=== PATIENT | male | born 1960 | race Caucasian/White ===

== ENCOUNTER 2019-12-07 16:54 | Observation (INO) | payer MEDICAID, SELFPAY ==
--- NOTE | 2019-12-07 16:50 | ECG_ITS ---
APPROVED REPORT Exam: Resting ECG HR:79 bpm ECG Measurements Heart Rate 79 AXES RI 168 P 29 QRSd 82 QRS -16 QT 370 T 38 QTc 424 <Conclusion> Normal sinus rhythm Poor r wave progression,LAD Abnormal ECG Electronically signed by : Jesse Thompson, 12/08/2019 09:01:02
[2019-12-07 16:54] VITALS: BP 183/109; PULSE 84; RESP 17; TEMP 36.8; O2SAT 96; BMI 29.2
--- NOTE | 2019-12-07 17:01 | XR_ITS ---
PROCEDURE: XR CHEST 2V CLINICAL HISTORY: chest pain Chest pain and shortness of air COMPARISON: CR CXR CHEST(2 VIEWS-NOT PORTABLE) from 09/16/2016 FINDINGS: The cardiomediastinal silhouette and pulmonary vascularity are within normal limits. The lungs are clear without infiltrates, suspicious nodules, or pleural effusions. No acute bony abnormalities. IMPRESSION: No acute findings. Dictated by: Thien Lorenzo MD 12/07/2019 18:19 Thien Lorenzo MD in [place] 12/07/2019 18:19
--- NOTE | 2019-12-07 17:03 | HMH.EDGENADL ---
ED Disposition Clinical Impression: Alcohol use Chest pain Qualifiers: Chest pain type: unspecified Qualified Code(s): R07.9 - Chest pain, unspecified Hypertension Qualifiers: Hypertension type: essential hypertension Qualified Code(s): I10 - Essential (primary) hypertension Disposition: Admitted as Observation Condition on Discharge: Fair Time of Disposition: 20:00 - Critical Care Critical Care Time: No Attestation: On , the high probability of a clinically significant, sudden or life threatening deterioration of the following system(s) required my full and direct attention, intervention and personal management. The time I documented below is in addition to time spent performing reported procedures but includes the following listed in this critical care notation. Medical Decision Making - Medical Records Medical records reviewed: Yes: I reviewed the patient's medical records. - Luis A Inquiry Pt receiving controlled substance: No Vital Signs: 12/07/19 16:54 12/07/19 18:24 12/07/19 19:41 Temperature 98.2 F Temperature Source Oral Pulse Rate [Right] 84 72 77 Respiratory Rate 17 20 19 Blood Pressure [Right Arm] 183/109 H 154/87 H 147/93 H Blood Pressure Mean [Right Arm] 133 109 111 Blood Pressure Source [Right Arm] Automatic Cuff Automatic Cuff Blood Pressure Position [Right Arm] Sitting Sitting 02 Sat by Pulse Oximetry 96 95 94 L Oxygen Delivery Method Room Air Room Air - Lab Data Lab Results 12/07/19 17:00: WBC 8.8, RBC 5.09, Hgb 17.2, Hct 50.2, MCV 98.6 H, MCH 33.8 H, MCHC 34.3, RDW 14.1, Plt Count 210, MPV 8.2, Neut % (Auto) 65.6, Lymph % (Auto) 26.5, [place] % (Auto) 5.2, Eos % (Auto) 2.3, Baso % (Auto) 0.4, Neut # (Auto) 5.8, Lymph # (Auto) 2.3, [place] # (Auto) 0.5, Eos # (Auto) 0.2, Baso # (Auto) 0.0 12/07/19 17:00: Sodium 138, Potassium 3.6, Chloride 102, Carbon Dioxide 27, Anion Gap 12.6, BUN 7 L, Creatinine 0.70, Estimated Creat Clear 175, Estimated GFR 115, Est GFR ( Amer) 140, Glucose 106 H, Calcium 9.4, Troponin I < 0.01 12/07/19 17:00: D-Dimer 0.37 12/07/19 17:00: SARS-CoV-2 IgG Ab (Rapid) Negative, SARS-CoV-2 IgM Ab (Rapid) Negative 12/07/19 17:00: Plasma/Serum Alcohol 39 H 12/07/19 17:00: APTT 22.7 L 12/07/19 17:00: Phosphorus 3.1, Magnesium 2.0 Result diagrams: 12/07/19 17:00 12/07/19 17:00 Orders (Tests/Meds): ED MEDICATIONS Generic Name Dose Route Start Last Admin Trade Name Freq PRN Reason Stop Dose Admin Folic Acid 1 mg 12/08/19 09:00 Folic Acid 1mg Tablet PO 01/07/20 08:59 DAILY TARA Haloperidol 5 mg 12/07/19 19:12 Haldol 5mg Tablet PO 01/06/20 19:11 Q1HP PRN Agitation Multivitamins 1 each 12/08/19 17:00 Multi-Vitamin Plain PO 01/07/20 16:59 1700 TARA Oxazepam 15 mg 12/07/19 19:12 Serax 15mg Capsule PO 01/08/20 19:14 Q6H PRN Alcohol Withdrawal Oxazepam 30 mg 12/07/19 19:12 Serax 15mg Capsule PO 12/09/19 13:16 Q6H PRN Alcohol Withdrawal Thiamine HCl 100 mg 12/08/19 09:00 Vitamin B-1 100mg Tablet PO 12/10/19 09:01 DAILY [facility] ORDERS Category Date Time Status Troponin I Q3H Lab 12/07/19 23:15 Ordered - ECG Data Tracing #1 Sinus rhythm with ventricular rate of 79 bpm. QRS 82, QTc 424. No st segment elevation - INDER Score for Non-Stemi Age of Patient: 50-59 years old Heart Rate: 70-89 bpm Systolic Blood Pressure: 160-199 mmHg Serum Creatinine: 0.40-0.79 mg/dl CHF Killip Class: I-No CHF Other Risk Factors: None Non-Stemi Risk Score: 64 Medical Decision Narrative: In summary this is a 59-year-old male presenting to the emergency department chest pain. Patient is clinically stable on arrival, though he is hypertensive. Concern for ACS. Will obtain CBC, CMP, chest x-ray, EKG, troponin profile, d-dimer. EKG shows sinus rhythm, possible age-indeterminate septal infarct. No STEMI.. Initial laboratory results are generally unremarkable. No elevation
[2019-12-07 17:10] LABS: Basophils % 0.4 % (0.1-2.0); Eosinophils # 0.2 K/mm3 (0.0-0.4); Eosinophils % 2.3 % (0.1-12.0); Hematocrit 50.2 % (42.0-52.0); Hemoglobin 17.2 g/dL (14.1-18.0); Lymphocytes # 2.3 K/mm3 (0.7-4.5); Lymphocytes % 26.5 % (10-50); Mean Corpuscular HGB Conc 34.3 g/dL (31.8-35.4); Mean Corpuscular Hemoglobin 33.8 pg (27.0-31.2); Mean Corpuscular Volume 98.6 fl (80-94); Mean Platelet Volume 8.2 fl (7.4-10.4); Monocytes # 0.5 K/mm3 (0.1-1.0); Monocytes % 5.2 % (1.7-9.3); Neutrophils # 5.8 K/mm3 (1.8-7.8); Neutrophils % 65.6 % (37.0-80.0); Platelet Count 210 K/mm3 (142-424); Red Blood Count 5.09 M/mm3 (4.60-6.20); Red Cell Distribution Width 14.1 % (11.5-17.5); White Blood Count 8.8 K/mm3 (4.8-10.8)
[2019-12-07 17:15] LABS: Ethyl Alcohol 39 mg/dl (0-10)
[2019-12-07 17:16] LABS: Anion Gap 12.6 mEq/L (5-15); Blood Urea Nitrogen 7 mg/dl (9-20); Calcium 9.4 mg/dl (8.4-10.2); Carbon Dioxide 27 mmol/L (22.0-30.0); Chloride 102 mmol/L (98-107); Creatinine Clearance Estimated 175 mL/min (50-200); Estimated Glomerular Filt Rate 115 ml/min (>60); GFR (African American) 140 ML/MIN (>60); Glucose 106 mg/dl (74-100); Potassium 3.6 mmoL/L (3.5-5.1); Sodium 138 mmol/L (136-145)
[2019-12-07 17:20] LABS: D-Dimer 0.37 ug/mL (0.15-8.0)
[2019-12-07 17:37] LABS: Troponin I < 0.01 ng/ml (0.00-0.034)
[2019-12-07 17:38] LABS: Coronavirus 19 IgG Antibody Negative (Negative); Coronavirus 19 IgM Antibody Negative (Negative)
[2019-12-07 18:24] VITALS: BP 154/87; PULSE 72; RESP 20; O2SAT 95
--- NOTE | 2019-12-07 19:13 | PC.NURSE ---
[facility] HAS AGREED TO ACCEPT PT FOR ADMISSION
--- NOTE | 2019-12-07 19:30 | PC.NURSE ---
report received from day shift at 1930.
[2019-12-07 19:36] LABS: Phosphorous 3.1 mg/dl (2.5-4.5)
[2019-12-07 19:41] VITALS: BP 147/93; PULSE 77; RESP 19; O2SAT 94
[2019-12-07 19:53] LABS: Activated Partial Thrombo Time 22.7 seconds (23.6-34.0)
[2019-12-07 21:01] LABS: Troponin I < 0.01 ng/ml (0.00-0.034)
--- NOTE | 2019-12-07 21:33 | PC.NURSE ---
Report received from Bessy Ward RN in the ER @ [phone]. [facility] staff aware that pt is ready to come to floor. They will get pt as soon as they return from bring another pt to the floor.
[2019-12-07 21:50] VITALS: BP 151/75; PULSE 76; RESP 18; TEMP 36.8; O2SAT 98
[2019-12-07 21:51] VITALS: BP 164/87; PULSE 69; RESP 16; TEMP 36.9; O2SAT 93; BMI 29.3
--- NOTE | 2019-12-07 21:52 | PC.NURSE ---
PT ARRIVED TO THE FLOOR VIA W/C FROM ED AT [id number]
[2019-12-07 22:13] LABS: Coronavirus 19 IgG Antibody Negative (Negative); Coronavirus 19 IgM Antibody Negative (Negative)
[2019-12-07 23:21] VITALS: PULSE 60
[2019-12-08] VITALS: BP 128/79; PULSE 60; PULSE 64; RESP 20; TEMP 36.8; O2SAT 97
--- NOTE | 2019-12-08 03:19 | PC.NURSE ---
Pt A&OX4 lungs CTA pt denies any pain or SOA. NSR on tele. Serax and haldol given for CIWA greater then 8. pt has rested quietly this shift.
[2019-12-08 04:00] VITALS: BP 115/78; PULSE 50; PULSE 58; RESP 14; TEMP 36.5; O2SAT 96
--- NOTE | 2019-12-08 06:10 | PC.NURSE ---
Tamir ROBERSON notified of consult
--- NOTE | 2019-12-08 07:43 | P.CONPHA_ITS ---
[facility] Pharmacy VTE Monitoring - Patient Demographics Admission date: 12/07/19 Report Date: 12/08/19 Time: 07:43 Allergies/Adverse Reactions: Patient Allergies No Known Allergies Allergy (Unverified 04/02/17 15:27) Height: 1.93 m Weight: 109.316 kg Patient Problems: Current Active Problems Chest pain (Acute) Hypertension (Acute) Alcohol use (Acute) - VTE Risk Labs: VTE Related Lab Results Hgb 17.2 g/dL (14.1-18.0) 12/07/19 17:00 Hct 50.2 % (42.0-52.0) 12/07/19 17:00 Plt Count 210 K/mm3 (142-424) 12/07/19 17:00 APTT 22.7 seconds (23.6-34.0) L 12/07/19 17:00 BUN 7 mg/dl (9-20) L 12/07/19 17:00 Creatinine 0.70 mg/dl (0.66-1.25) 12/07/19 17:00 Estimated Creat Clear 175 mL/min (50-200) 12/07/19 17:00 Was VTE Risk Assessment Performed: Yes VTE Score: 2 VTE Risk Level: Very Low Risk Clinical Trial Participant: No - Prophylaxis VTE Prophylaxis Ordered?: Yes Types of VTE Prophylaxis: TEDS Knee High Location of Applied Device: Refused
[2019-12-08 08:00] VITALS: BP 119/82; PULSE 50; RESP 16; TEMP 36.5; O2SAT 98
--- NOTE | 2019-12-08 08:42 | HMH.CNCARD ---
History of Present Illness Consult date: 12/08/19 Requesting physician: Dwayne Beckett Consult reason: chest pain Chief complaint: chest pain Additional Medical History:: 1. HTN 2. Daily alcohol use History of present illness: 59-year-old white male admitted through the ER for 2-day history of chest pain. Patient states he was working on a piece of equipment when the wrench slipped and he felt a pulling sensation in his chest. He has had discomfort since then that is reproducible with taking a deep breath, certain movement or palpation of the chest wall. Patient denies tobacco use or history of diabetes. He has been treated for hypertension for more than 10 years. Employee of the hospital and friend of the patient is in the room and states that there was some slight confusion yesterday when he was complaining of the chest pain. The patient took a aspirin with resolution of symptoms thereafter. No specific TIA or CVA type symptoms noted with the confusion. Troponins normal x2 EKG is sinus rhythm with no acute ST segment changes. Echo was performed today with preliminary reading showing preserved ejection fraction with abnormal morphology of the mitral valve without evidence of vegetation. [facility] History Medical History: Reports:: MRSA (wound) Denies:: Cancer, Diabetes Mellitus Type 1, Diabetes Mellitus Type 2 *Have you ever received a pneumonia vaccine?: No *Have you received a flu vaccine this season?: No Other Medical History: Reports: Arthritis (knees hands) Laterality Cases: Bilateral: Tonsillectomy Other Surgeries: Yes: Appendectomy, Cardiac Catheterization, Cholecystectomy, Colonoscopy, Sinus Surgery Amputation: No Fractures: No - *Social History Last grade of school completed: High school graduate Smoking Status: Never smoker Alcohol Intake: current Alcohol Intake Frequency:: 3 or more drinks per day *Occupational Status:: employed Household Members: significant other *Travel in the last 8 weeks: None Family Hx:: Cancer Meds Home Medications Medication Instructions Recorded Confirmed Type lisinopriL [Lisinopril 10mg Tab] 10 mg PO BID 12/07/19 12/07/19 History Allergies Allergy/AdvReac Type Severity Reaction Status Date / Time No Known Allergies Allergy Unverified 04/02/17 15:27 Exam Vital signs and Labs for Last 24 Hours: Temp Pulse Resp BP Pulse Ox 97.7 F 50 L 16 119/82 98 12/08/19 08:00 12/08/19 08:00 12/08/19 08:00 12/08/19 08:00 12/08/19 08:00 Laboratory Results - last 24 hr 12/07/19 17:00: WBC 8.8, RBC 5.09, Hgb 17.2, Hct 50.2, MCV 98.6 H, MCH 33.8 H, MCHC 34.3, RDW 14.1, Plt Count 210, MPV 8.2, Neut % (Auto) 65.6, Lymph % (Auto) 26.5, [place] % (Auto) 5.2, Eos % (Auto) 2.3, Baso % (Auto) 0.4, Neut # (Auto) 5.8, Lymph # (Auto) 2.3, [place] # (Auto) 0.5, Eos # (Auto) 0.2, Baso # (Auto) 0.0 12/07/19 17:00: Sodium 138, Potassium 3.6, Chloride 102, Carbon Dioxide 27, Anion Gap 12.6, BUN 7 L, Creatinine 0.70, Estimated Creat Clear 175, Estimated GFR 115, Est GFR ( Amer) 140, Glucose 106 H, Calcium 9.4, Troponin I < 0.01 12/07/19 17:00: D-Dimer 0.37 12/07/19 17:00: SARS-CoV-2 IgG Ab (Rapid) Negative, SARS-CoV-2 IgM Ab (Rapid) Negative 12/07/19 17:00: Plasma/Serum Alcohol 39 H 12/07/19 17:00: APTT 22.7 L 12/07/19 17:00: Phosphorus 3.1, Magnesium 2.0 12/07/19 20:23: Troponin I < 0.01 12/07/19 21:10: SARS-CoV-2 IgG Ab (Rapid) Negative, SARS-CoV-2 IgM Ab (Rapid) Negative I & O for Last 24 hours: Intake & Output 12/05/19 12/06/19 12/07/19 12/08/19 11:59 11:59 11:59 11:59 Intake Total 250 / 250 Balance 250 / 250 Weight 241 lb - *Routine HEENT Exam Head: Present: normocephalic Eye: Present: EOMI, PERRL ENT: Present: mucous membranes moist - *Routine Respiratory Exam Present: CTA bilaterally - *Routine Cardiovascular Exam Present: RRR - *Routine Abdominal Exam Present: soft, normoactive bowel sounds. Absent: tenderness - *Routine Extremities Exam Absent
--- NOTE | 2019-12-08 09:07 | HMH.HP ---
*Admission Date: 12/07/19 <Mona Jeffery 12/08/19 09:24> *Chief complaint: Chest pain <Mona Jeffery 12/08/19 09:24> *History of present illness: 59-year-old white male admitted through the ER for 2-day history of chest pain. Patient states he was working on a piece of equipment when the wrench slipped and he felt a pulling sensation in his chest. He has had discomfort since then that is reproducible with taking a deep breath, certain movement or palpation of the chest wall. Patient denies tobacco use or history of diabetes. He has been treated for hypertension for more than 10 years. Employee of the hospital and friend of the patient is in the room and states that there was some slight confusion yesterday when he was complaining of the chest pain. The patient took a aspirin with resolution of symptoms thereafter. No specific TIA or CVA type symptoms noted with the confusion. Troponins normal x2 EKG is sinus rhythm with no acute ST segment changes. Echo was performed today with preliminary reading showing preserved ejection fraction with abnormal morphology of the mitral valve without evidence of vegetation. <Mona Jeffery 12/08/19 09:24> [facility] History Medical History: Reports:: Hypertension, MRSA (wound) Denies:: Cancer, Diabetes Mellitus Type 1, Diabetes Mellitus Type 2, Gastroesophageal Reflux Disease(GERD) <JefferyMona 12/08/19 09:24> *Have you ever received a pneumonia vaccine?: No <JefferyMona 12/08/19 09:24> *Have you received a flu vaccine this season?: No <LatiaMona 12/08/19 09:24> Other Medical History: Reports: Arthritis (knees hands) <JefferyMona 12/08/19 09:24> Laterality Cases: Bilateral: Tonsillectomy <LatiaMona 12/08/19 09:24> Other Surgeries: Yes: Appendectomy, Cardiac Catheterization, Cholecystectomy, Colonoscopy, Sinus Surgery <Mona Jeffery 12/08/19 09:24> Amputation: No <Mona Jeffery 12/08/19 09:24> Fractures: No <Mona Jeffery 12/08/19 09:24> - *Social History Last grade of school completed: High school graduate <Mona Jeffery 12/08/19 09:24> Smoking Status: Never smoker <Mona Jeffery 12/08/19 09:24> Alcohol Intake: current <Mona Jeffery 12/08/19 09:24> Alcohol Intake Frequency:: 3 or more drinks per day <Mona Jeffery 12/08/19 09:24> *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) <Mona Jeffery 12/08/19 09:24> Household Members: significant other <Mona Jeffery 12/08/19 09:24> *Travel in the last 8 weeks: None <Mona Jeffery 12/08/19 09:24> Family Hx:: Cancer <Mona Jeffery 12/08/19 09:24> Review of Systems - Constitutional Denies fever(s) <Mona Jeffery 12/08/19 09:24> - Eyes Denies change in vision <Mona Jeffery 12/08/19 09:24> - ENT Denies ear pain, Denies sore throat <Mona Jeffery 12/08/19 09:24> - *Cardiovascular Reports chest pain, Reports chest pain at rest, Reports chest pain with activity, Denies shortness of breath, Denies irregular heart rhythm, Denies leg swelling, Denies rapid, pounding, or irregular heartbeat <Mona Jeffery 12/08/19 09:24> - *Respiratory Denies chest congestion, Denies cough, Denies shortness of breath, Denies coughing up blood <Mona Jeffery 12/08/19 09:24> - *Gastrointestinal Denies abdominal pain, Denies change in bowel habits, Denies constipation, Denies loose stools, Denies heartburn, Denies nausea, Denies vomiting <Mona Jeffery 12/08/19 09:24> - *Genitourinary Denies difficulty urinating <Mona Jeffery 12/08/19 09:24> - *Musculoskeletal Reports joint pain, Denies muscle weakness <Mona Jeffery 12/08/19 09:24> - *Neurologic Denies dizziness, Denies numbness, Denies seizure-like activity, Denies fainting, Denies tingling, Denies weakness <Mona Jeffery - 12/08/19 09:24> Meds Home Medications Medication Instructions Recorded Confirmed Type lisinopriL [Lisinopril 10mg Tab] 10 mg PO BID 12/07/19 12/07/19 History <Dwayne Beckett - 0
--- NOTE | 2019-12-08 09:23 | XR_ITS ---
PROCEDURE: XR SHOULDER LT MIN 2V CLINICAL INDICATION: Injury to the left shoulder. COMPARISON: No exams were available for comparison FINDINGS: The lateral clavicle is intact. There is moderate degenerate change of the AC joint with spurring superiorly and inferiorly. There is prominent lateral downsloping acromion process resulting in prominent subacromial stenosis and a likely predisposition to impingement syndrome. The humeral head and glenoid. There are no soft tissue calcifications. IMPRESSION: Probable impingement syndrome, no acute fracture seen Dictated by: Dr. Von Adkins MD 12/08/2019 10:00 Dr. Von Adkins MD in [place] 12/08/2019 10:00
[2019-12-08 11:42] VITALS: BP 146/80; PULSE 60; RESP 17; TEMP 36.6; O2SAT 95
[2019-12-08 14:00] LABS: Erythrocyte Sedimentation Rate 7 mm/hr (0-20)
--- NOTE | 2019-12-08 20:09 | CA_ITS ---
APPROVED REPORT EXAM: Comprehensive 2D, Doppler, and color-flow Echocardiogram Equipment Inspector: Jimena Rhodes CRT Ht: 6 ft 4 in Wt: 240lbs BSA: 2.39 BP: 147/93 mmHg Indications: Chest Pain 2D Dimensions LVOT 2.32 cm (M/F) 1.5-2.5 M-Mode Dimensions RVDd 3.06 cm (0.9-2.6) LVDd 4.68 cm (3.5-5.7) LVDs 2.95 cm (3.5-5.7) IVSd 2.05 cm (0.6-1.1) PWd 0.91 cm (0.6-1.1) EF (Teich) 66.80% FS 37.00% EDV (Teich) 101.30 mL ESV (Teich) 33.60 mL LV Diastology E/A Ratio 2.63 Mitral Valve MV A Velocity 27.00 (40-130 cm/s) Left Ventricle Left atrium is mildly enlarged, left ventricle is normal size, mild concentric left ventricular hypertrophy, visually estimated ejection fraction 55% with no regional wall motion abnormality, grade 1 diastolic dysfunction seen with tissue Doppler evidence of raise left atrial pressure. Right Ventricle Right atrium and right ventricle are normal size and contractility. Aortic Valve Aortic valve is minimally thickened and fibrosed, there is no aortic stenosis or aortic insufficiency. Mitral Valve Mitral valve is minimally thickened, there is mild mitral regurgitation. Tricuspid Valve Tricuspid valve is grossly normal, there is mild tricuspid regurgitation, tricuspid regurgitation jet velocity is inadequate for calculation of the right ventricular systolic pressure. Pulmonic Valve Pulmonic valve is poorly visualized. Great Vessels Aortic root is normal size. Pericardium No significant pericardial effusion noted. Conclusion 1. Mildly enlarged left atrium, normal left ventricular size, mild concentric left ventricular hypertrophy, visually estimated ejection fraction 55% with no regional wall motion abnormality, grade 1 diastolic dysfunction seen with tissue Doppler evidence of raise left atrial pressure. 2. Mild mitral and tricuspid regurgitation. 3. No significant pericardial effusion noted. Electronically signed by : Emmanuel Dillard, 12/08/2019 18:56:36
--- NOTE | 2019-12-09 12:54 | HMH.DCSUM ---
General - General Admission date:: 12/07/19 <Dwayne Beckett - 12/09/19 13:49> 12/07/19 <Mona Jeffery - 12/09/19 13:28> Discharge date: 12/08/19 <Mona Jeffery - 12/09/19 13:28> HPI HPI: 59-year-old white male admitted through the ER with 2-day history of chest pain. Patient stated he was working on a piece of equipment when the wrench slipped and he felt a pulling sensation in his chest. He experienced discomfort since this incidence. The pain was reproducible with taking a deep breath, certain movement or palpation of the chest wall. Patient denies tobacco use or history of diabetes. He was treated for hypertension for more than 10 years. Employee of the hospital and friend of the patient was in the room and stated that there was some slight confusion when he was complaining of the chest pain. The patient took an aspirin with resolution of symptoms thereafter. No specific TIA or CVA type symptoms noted with the confusion. Troponins normal x2 EKG revealed sinus rhythm with no acute ST segment changes. Echo was performed with preliminary reading showing preserved ejection fraction with abnormal morphology of the mitral valve without evidence of vegetation. <Mona Jeffery - 12/09/19 13:33> Hospital Course Hospital Course: Patient was seen by cardiology with the following recommendations: Assessment and Plan for all problems:: 1. Atypical chest pain with normal troponins and no acute ST segment changes on EKG. Chest pain is reproducible with palpation. Preliminary echocardiogram shows preserved ejection fraction with no significant valvular heart disease. There is some abnormality of the mitral valve with mitral valve regurgitation which will be followed up as an outpatient. Recommend aspirin 81 mg daily until outpatient stress test results obtained. 2. Hypertension, not to goal. Recommend increasing lisinopril to 20 mg twice daily. Will not add beta-raissa at this time due to the patient's bradycardia at rest. 3. Daily alcohol use without history of DTs or cirrhosis of the liver. 4. Plans for knee surgery in the near future Documented By: Tamir Feliciano right Patient continued with left shoulder discomfort. X-ray of the shoulder revealed possible impingment. Cardiology planned a stress test. Echo did reveal a redunant mitral valve chordae. To cover and concern for endocarditis blood cultures were obtained and sed rate which was 7; blood cultures are pending. possible OP JOSAFAT may be needed. He has a FU appt with cardiology 12/15/19. Pt was discharged to home in stable and satisfactory condition 12/08/19. To FU with Dr. Beckett in 1 month. BP was elevated and Lisinopril was increased to 20mg bid. <Mona Jeffery - 12/09/19 13:33> Objective Vital signs: Temp Pulse Resp BP Pulse Ox 98 F 60 17 146/80 H 95 12/08/19 11:42 12/08/19 11:42 12/08/19 11:42 12/08/19 11:42 12/08/19 11:42 <Dwayne Beckett - 12/09/19 13:49> Temp Pulse Resp BP Pulse Ox 98 F 60 17 146/80 H 95 12/08/19 11:42 12/08/19 11:42 12/08/19 11:42 12/08/19 11:42 12/08/19 11:42 <Mona Jeffery - 12/09/19 13:28> Narrative: Exam Vital signs and Labs for Last 24 Hours: Temp Pulse Resp BP Pulse Ox 97.7 F 50 L 16 119/82 98 12/08/19 08:00 12/08/19 08:00 12/08/19 08:00 12/08/19 08:00 12/08/19 08:00 Laboratory Results - last 24 hr 12/07/19 17:00: WBC 8.8, RBC 5.09, Hgb 17.2, Hct 50.2, MCV 98.6 H, MCH 33.8 H, MCHC 34.3, RDW 14.1, Plt Count 210, MPV 8.2, Neut % (Auto) 65.6, Lymph % (Auto) 26.5, [place] % (Auto) 5.2, Eos % (Auto) 2.3, Baso % (Auto) 0.4, Neut # (Auto) 5.8, Lymph # (Auto) 2.3, [place] # (Auto) 0.5, Eos # (Auto) 0.2, Baso # (Auto) 0.0 12/07/19 17:00: Sodium 138, Potassium 3.6, Chloride 102, Carbon Dioxide 27, Anion Gap 12.6, BUN 7 L, Creatinine 0.70, Estimated Creat Clear 175, Estimated GFR 115, Est GFR ( Amer) 140, Glucose 106 H, Calcium 9.4, Troponin I < 0.01 12/07/19 17:00:
== END 2019-12-08 13:00 | disposition home or self-care (01) ==
LOC: ER 17:33 → 2ND 20:57
PROVIDERS: Physician Assistant; Admitting Provider Family Medicine; Emergency Provider Emergency Medicine; Visit Provider Family Medicine
DX: R07.9 Chest pain, unspecified (principal); I10 Essential (primary) hypertension; F10.10 Alcohol abuse, uncomplicated; M25.512 Pain in left shoulder; Y90.1 Blood alcohol level of 20-39 mg/100 ml
CPT/HCPCS: 36415; 71046; 73030; 80048; 83735; 84100; 84484; 85025; 85378; 85651; 85730; 86328; 87040; 93005; 93306; 99282; G0378

== ENCOUNTER → 2019-12-11 06:57 | Outpatient (CLI) | payer MEDICAID, SELFPAY ==
--- NOTE | 2019-12-11 | CA_ITS ---
APPROVED REPORT Exam: Pharmacologic Technologist: Elaine Castle, Ht: 6 ft 4 in Wt: 241 lbs BSA: 2.40 m2 HR: 53 bpm BP: 132/98 mmHg Rhythm: SINUS ZONIA-ABNORMAL ECG Medical History Medical History: HTN Medications: Lisinopril,,,,, Allergies: No known drug allergies Cardiac Risk Factors: HTN Stress Test Details Test: LEXISCAN HR Resting HR: 55 bpm Max Heart Rate (APMHR): 161 bpm Max HR Achieved: 78 bpm Target HR (85% APMHR): 136 bpm % of APMHR: 48 Recovery HR: 60 bpm BP Resting BP: 132.0/98.0 mmHg Max BP: 150.0/91.0 mmHg Recovery BP: 146.0/81.0 mmHg ECG Resting ECG: SINUS ZONIA Clinical Exercise duration: 04:05 min Highest Stage Achieved: Exercise capacity: 1.0 METs Stress ECG Conclusion LEXISCAN PORTION COMPLETED. PATIENT C/O SHORTNESS OF BREATH DURING PEAK INFUSION. ARTIFACT ON STRESS RESEMBLES VT. WHEN PATIENT WOULD LAUGH. ARTIFACT BEGAN SND WOULD STOP WHEN HE STOPPED LAUGHING. NO CHEST PAIN. SHORTNESS OF BREATH DURING PEAK INFUSION RESOLVED IN RECOVERY. OCCASIONAL PVC. LESS THAN 1.5MM ST DEPRESSION. IMAGES TO FOLLOW Test Summary REST . . . . . . . Sitting REST 14:45 . . 55 . 132/ 98 . . Stage 1 . . . . . . . Myoview Injected Stage 1 01:00 . . 77 . . . . Stage 2 01:00 . . 71 . 130/ 77 . . Stage 3 01:00 . . 69 . 150/ 91 . . Stage 4 01:00 . . 64 . 148/ 88 . . Stage 4 01:05 . . 66 . 148/ 88 . Stop exercise at 04:05 RECOVERY 01:00 . . 56 . 146/ 81 . . RECOVERY 02:00 . . 58 . 141/ 88 . . RECOVERY 03:00 . . 57 . 141/ 88 . . RECOVERY 03:27 . . 58 . 136/ 82 . . Electronically signed by : Emmanuel Dillard, 12/11/2019 13:41:53
--- NOTE | 2019-12-11 06:57 | NM_ITS ---
APPROVED REPORT Exam: Nuclear Stress Test Indication: chest pain..palpitations..fatigue Patient Location: Outpatient Stress Tech: Jody Heartnkson NM Tech:MARY Edwards RT(R)(N) Ht: 6 ft 4 in Wt: 241 lbs HR: 53 bpm BP: 132/98 mmHg BSA: 2.40 m2 BMI: 29.3 History: chest pain..palpitations..fatigue Procedure: Patient received a 0.4 mg of intravenous Lexiscan, resting heart rate 53 bpm, resting blood pressure 132/98 mmHg, with Lexiscan maximum heart rate achived was 76 bpm which is Less than 85 % of the maximum predicted heart rate and blood pressure was 156/91 mmHg. With Lexiscan, patient denied any complaint of chest pain. Electrocardiogram Resting electrocardiogram shows sinus rhythm nonspecific ST-T changes, with Lexiscan less than 1.[address] segment depression noted from the baseline EKG. The EKG portion of the Lexiscan Myoview is nondiagnostic. Cardiac Stress and Resting SPECT Images: Cardiac Stress and Resting SPECT images were obtained using technetium 99m Myoview 32.9 mCi stress and 10.01 mCi at rest. Gated SPECT for the analysis of segmental wall motion and calculation of the ejection fraction also done. Cardiac stress and resting SPECT images show uniform myocardial activity without segmental perfusion abnormality, computer derived ejection fraction is 60% with no regional wall motion abnormality, right ventricle is normal size and contractility. Conclusion: 1. The EKG portion of the Lexiscan Myoview is nondiagnostic. 2. No scintigraphic evidence of reversible ischemia seen, computer derived ejection fraction is 60% with no regional wall motion abnormality, right ventricle is normal size and contractility. 3. Normal Lexiscan Myoview study. Electronically signed by : Emmanuel Dillard, 12/11/2019 13:51:24
--- NOTE | 2019-12-11 10:15 | HMH.ITSHM ---
Current Home Medications as stated by this patient Diego Eddy or member services representative. [] lisinopril
== END ==
PROVIDERS: Visit Provider Physician Assistant
DX: R07.9 Chest pain, unspecified (principal)
CPT/HCPCS: 78452; 93017; A9502; J2785

== ENCOUNTER 2019-12-16 11:25 | Emergency (ER) | payer MEDICAID, SELFPAY ==
[2019-12-16 11:35] VITALS: BP 141/83; PULSE 64; RESP 17; TEMP 37.4; O2SAT 95; BMI 293.3
--- NOTE | 2019-12-16 11:43 | PC.NURSE ---
Lab at bedside
--- NOTE | 2019-12-16 11:53 | HMH.EDGENADL ---
ED Disposition Clinical Impression: Sinus pain, Cough, Exposure to COVID-19 virus Fever Qualifiers: Fever type: unspecified Qualified Code(s): R50.9 - Fever, unspecified Disposition: Home, Self-Care Condition on Discharge: Good Additional Instructions: Amoxicillin as prescribed. Tylenol or ibuprofen for pain and fever. Quarantine yourself until COVID-19 test results are known. Call the emergency department in 2 days for COVID-19 test results. Additional instructions for UPPER RESPIRATORY INFECTION: See your physician if not improving in 3-4 days or if worsening. Rest and drink plenty of fluids. Return immediately if you have an uncontrollable fever greater than 104 degrees, difficulty breathing or shortness of breath, persistent vomiting, or inability to swallow. Prescriptions: Amoxicillin [Amoxicillin 500mg Cap] 500 mg PO TID #30 cap Transmission Status: Pending to [facility]/pharmacy #[id number] Referrals: PCP,No [Primary Care Provider] - - Critical Care Critical Care Time: No Attestation: On 12/16/19, the high probability of a clinically significant, sudden or life threatening deterioration of the following system(s) required my full and direct attention, intervention and personal management. The time I documented below is in addition to time spent performing reported procedures but includes the following listed in this critical care notation. Medical Decision Making - Luis A Inquiry Pt receiving controlled substance: No Vital Signs: 12/16/19 11:35 12/16/19 11:58 Temperature 99.4 F Temperature Source Oral Pulse Rate [Right Radial] 64 58 L Respiratory Rate 17 Blood Pressure [Right Arm] 141/83 H 124/81 Blood Pressure Mean [Right Arm] 102 95 Blood Pressure Source [Right Arm] Automatic Cuff Blood Pressure Position [Right Arm] Sitting 02 Sat by Pulse Oximetry 95 95 Oxygen Delivery Method Room Air Room Air Orders (Tests/Meds): ORDERS Category Date Time Status XR chest portable Stat Exams 12/16/19 12:01 Taken Covid-19 Nasal PCR Sendout Noel Stat Lab 12/16/19 11:43 Received - Radiology Data #1 Image(s): Chest Image Reviewed: Yes I reviewed the patient's radiology image Preliminary Findings: Normal/NAD General Adult HPI - General Chief complaint: Fever Stated complaint: sore throat,cough,fever Time Seen by Provider: 12/16/19 11:53 Mode of Arrival: Ambulatory Limitations: No Limitations Description of Symptoms (Recalled from ER Triage Doc. by RN): pt presents to ed with c/o fever up to 103, body aches, chills and sinus congestion. pt was exposed to a nonmasked positive covid patient on saturday. - History of Present Illness HPI narrative: States he has a bad sinus infection . Complains of pain in his sinuses which she locates his forehead and both cheeks. Denies rhinorrhea, postnasal drip, sore throat. He does have a cough and a fever. Denies earache. Denies shortness of breath. Minimal intermittent chest pain. He states that he was around somebody on Saturday for 3 or 4 hours who at that time did not seem sick at all, did not have a cough, but apparently then got sick the next day and tested positive for COVID-19. - Related Data Previous Rx's Medication Instructions Recorded lisinopriL [Zestril 20mg tab] 20 mg PO BID #60 tab 12/08/19 Amoxicillin [Amoxicillin 500mg 500 mg PO TID #30 cap 12/16/19 Cap] Allergies Allergy/AdvReac Type Severity Reaction Status Date / Time No Known Allergies Allergy Verified 12/16/19 11:39 [facility] History - Hepatitis A Screen Drug use history?: No High risk sexual behaviors?: No History of sexually transmitted infection?: No Currently employed?: No Childcare worker?: No Do you have indoor plumbing?: Yes Do you have electricity?: Yes Attestation statement:: This patient has been screened for Hepatitis A risk factors. I have reviewed the patient's past medical history: Yes Medical History: Reports:: Hypert
[2019-12-16 11:58] VITALS: BP 124/81; PULSE 58; O2SAT 95
--- NOTE | 2019-12-16 12:01 | XR_ITS ---
PROCEDURE: XR CHEST PORTABLE CLINICAL HISTORY: cough COMPARISON: CR CXR CHEST(2 VIEWS-NOT PORTABLE) from 09/16/2016 CR XR CHEST 2V from 12/07/2019 FINDINGS: The cardiomediastinal silhouette and pulmonary vascularity are within normal limits. The lungs are clear without infiltrates, suspicious nodules, or pleural effusions. No acute bony abnormalities. IMPRESSION: No acute findings. Dictated by: Thien Lorenzo MD 12/16/2019 13:32 Thien Lorenzo MD in [place] 12/16/2019 13:32
[2019-12-16 12:29] VITALS: BP 137/87; PULSE 57; O2SAT 94
[2019-12-16 12:39] VITALS: BP 137/87; PULSE 59; O2SAT 95
[2019-12-16 12:54] VITALS: BP 124/79; PULSE 60; RESP 15; TEMP 37.4; O2SAT 99
[2019-12-17 22:47] LABS: Covid-19 Nasal PCR Sendout Lex POSITIVE
== END 2019-12-16 12:55 | disposition home or self-care (01) ==
PROVIDERS: Emergency Provider Emergency Medicine
DX: Z20.828 Contact with and (suspected) exposure to other viral communicable diseases (principal); J34.89 Other specified disorders of nose and nasal sinuses; I10 Essential (primary) hypertension; Z90.09 Acquired absence of other part of head and neck; Z90.49 Acquired absence of other specified parts of digestive tract; Z79.899 Other long term (current) drug therapy
CPT/HCPCS: 71045; 99283; U0004

== ENCOUNTER → 2020-02-02 15:52 | Outpatient (CLI) | payer MEDICAID, SELFPAY ==
[2020-02-02 17:18] LABS: Basophils # 0.1 K/mm3 (0-0.2); Basophils % 0.8 % (0.1-2.0); Eosinophils # 0.3 K/mm3 (0.0-0.4); Eosinophils % 3.8 % (0.1-12.0); Hematocrit 51.8 % (42.0-52.0); Hemoglobin 16.8 g/dL (14.1-18.0); Lymphocytes # 2.1 K/mm3 (0.7-4.5); Lymphocytes % 27.4 % (10-50); Mean Corpuscular HGB Conc 32.4 g/dL (31.8-35.4); Mean Corpuscular Hemoglobin 32.8 pg (27.0-31.2); Mean Corpuscular Volume 101.2 fl (80-94); Mean Platelet Volume 9.9 fl (7.4-10.4); Monocytes # 0.6 K/mm3 (0.1-1.0); Monocytes % 7.4 % (1.7-9.3); Neutrophils # 4.7 K/mm3 (1.8-7.8); Neutrophils % 60.6 % (37.0-80.0); Platelet Count 264 K/mm3 (142-424); Red Blood Count 5.12 M/mm3 (4.60-6.20); Red Cell Distribution Width 14.6 % (11.5-17.5); White Blood Count 7.8 K/mm3 (4.8-10.8)
[2020-02-02 17:28] LABS: Alanine Aminotransferase 86 U/L (12-78); Albumin Level 4.1 g/dl (3.5-5.0); Albumin/Globulin Ratio 1.6 (1.1-1.8); Alkaline Phosphatase 92 U/L (38-126); Anion Gap 11.3 mEq/L (5-15); Aspartate Amino Transferase 77 U/L (17-59); Bilirubin,Total 0.8 mg/dl (0.2-1.3); Blood Urea Nitrogen 8 mg/dl (9-20); Calcium 9.6 mg/dl (8.4-10.2); Carbon Dioxide 25 mmol/L (22.0-30.0); Chloride 102 mmol/L (98-107); Chol/HDL Ratio 4.4 (1-3.5); Cholesterol 195 mg/dl (140-200); Estimated Glomerular Filt Rate 115 ml/min (>60); GFR (African American) 139 ML/MIN (>60); Globulin 2.6 g/dL (1.3-3.2); Glucose 119 mg/dl (74-100); HDL Cholesterol 44 mg/dl (40-60); Potassium 4.3 mmoL/L (3.5-5.1); Sodium 134 mmol/L (136-145); Total Protein,Serum 6.7 g/dl (6.3-8.2); Triglycerides 265 mg/dl (30-150); VLDL Cholesterol 53 mg/dL (0-40)
[2020-02-02 17:41] LABS: Direct LDL Cholesterol 129.84 mg/dL (100-129)
[2020-02-02 17:48] LABS: T4 (Thyroxine) 6.1 ug/dl (5.53-11.0)
[2020-02-02 18:01] LABS: Thyroid Stimulating Hormone 1.54 uIU/mL (0.465-4.68)
[2020-02-02 18:36] LABS: Vitamin B12 981 pg/mL (239-931)
[2020-02-02 18:49] LABS: Folate 4.11 ng/mL
[2020-02-04 12:16] LABS: PSA, Free 0.43 ng/mL; Prostate Specific Ag 1.8 ng/mL (0.0-4.0)
== END ==
PROVIDERS: Visit Provider Physician Assistant
DX: F10.10 Alcohol abuse, uncomplicated (principal); I10 Essential (primary) hypertension; Z79.899 Other long term (current) drug therapy; Z12.5 Encounter for screening for malignant neoplasm of prostate
CPT/HCPCS: 80053; 80061; 82607; 82746; 84153; 84154; 84436; 84443; 85025

== ENCOUNTER → 2020-03-15 11:58 | Outpatient (CLI) | payer MEDICAID, SELFPAY | PROVIDERS: Visit Provider Physician Assistant | DX: N41.9 Inflammatory disease of prostate, unspecified (principal) | CPT/HCPCS: 87086 ==

== ENCOUNTER → 2020-03-23 13:48 | Outpatient (CLI) | payer MEDICAID, SELFPAY ==
--- NOTE | 2020-03-23 13:52 | XR_ITS ---
PROCEDURE: XR LUMBAR SPINE MIN 4V CLINICAL INDICATION: LBP, numbness right leg COMPARISON: No exams were available for comparison FINDINGS: There is minimal lumbar curvature convex left. Multilevel lumbar spondylosis is present. There bridging osteophytes on the left at L1-L2 and L2-L3 and L3-L4 with smaller osteophytes on the right at L 2 L3 and L3-L4. Anterior osteophytes are noted at L5-L4 and L3. There is mild degenerative disc disease at L2-L3 L3-L4 L4-5 and L5-S1. There are mild facet arthritic changes at L4-L5 and S1. No acute fracture or dislocation is evident. No lytic or blastic change. There is generalized vascular calcification. Suspect a 3 mm stone is in the mid polar region of the right kidney IMPRESSION: Lumbar spondylosis with osteophytosis as described above. Possible right nephrolithiasis Dictated by: Thien Lorenzo MD 03/23/2020 15:02 Thien Lorenzo MD in [place] 03/23/2020 15:02
== END ==
PROVIDERS: PCP Physician Assistant; Visit Provider Physician Assistant
DX: R20.0 Anesthesia of skin (principal); N39.0 Urinary tract infection, site not specified
CPT/HCPCS: 72110; 87086

== ENCOUNTER 2020-04-06 17:00 | Outpatient (RCR) | payer MEDICAID, SELFPAY ==
--- NOTE | 2020-03-29 15:55 | HMH.PTOPEV ---
PT Outpatient Evaluation Rehab PT Outpatient Evaluation Start: 03/29/20 15:32 Freq: Status: Active Protocol: Document 03/29/20 15:32 PDESEROUX (Rec: 03/29/20 15:51 PDESEROUX [id number]) Electronically Signed By Je Ortega, ASH 03/29/20 15:32 Outpatient Therapy Subjective History Subjective History Pt. is a 60 year old male who presents to Outpatient PT clinic w/ complaints of subacute and constant RLB/RLE hip/buttock P ! of traumatic onset 1 month ago. Pt. reports first noticing symptoms last month after consistently riding his tractor in rough terrain. Pt. describes symptoms as a ache in his RLE hip/buttock and an asleep feeling in his anterior/lateral thigh to the knee. Pt. also reports having bladder incontinencies when his symptoms began. However, pt. reports symptom relief and return to bladder function w/ prescribed medication. Pt. also reports symptom relief post his two injections. Recent diagnostic imaging(X- ray) positive for multi-level lumbar spondylosis with osteophytosis. Pt. reports he feels 90% better after the medication and injections. Pt. denies radicular symptoms into the LLE. Pt. reports that his LLE TKA has been put on hold until he finishes his medication for this current pathology. 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 Current medications include Naproxen and Lisinopril. PMH includes Hypertension. Chief Complaint Pain,Paresthesia Symptom Type Ache,Dull,Numbness,Tingling Symptoms Relieved By Prescription Meds Symptoms Aggravated By Sitting,Walking Prior Functional Limitations None Current Functional Limitations Housework,Sleeping,Sitting, Recreation Activity,Walking
== END 2020-04-06 18:15 | disposition home or self-care (01) ==
LOC: PT.CARL 17:00
PROVIDERS: Visit Provider Physician Assistant
DX: M47.9 Spondylosis, unspecified (principal)
CPT/HCPCS: 97014; 97033; 97110; 97140; 97163; G0283

== ENCOUNTER 2020-04-19 11:23 | Outpatient (CLI) | payer MEDICAID, SELFPAY ==
[2020-04-19 11:40] VITALS: BP 145/58; PULSE 118; RESP 20; TEMP 36.2; O2SAT 98
[2020-04-19 12:10] VITALS: BP 130/59; PULSE 94; RESP 20; O2SAT 98
[2020-04-19 12:40] VITALS: BP 136/60; PULSE 90; RESP 20; O2SAT 97
[2020-04-19 13:00] VITALS: BP 132/57; PULSE 92; RESP 20; O2SAT 97
== END 2020-04-19 13:05 | disposition home or self-care (01) ==
LOC: INF 11:26
PROVIDERS: PCP Physician Assistant; Visit Provider Physician Assistant
DX: R06.6 Hiccough (principal)
CPT/HCPCS: 96360; 96375

== ENCOUNTER → 2020-08-24 10:56 | Outpatient (CLI) | payer MEDICAID, SELFPAY ==
--- NOTE | 2020-08-24 10:57 | CA_ITS ---
APPROVED REPORT Bilateral Lower Extremity Venous Study for DVT. Boiling House Hand: DYLAN Indications edema left lower extremity, S/p Left total knee replacement 8-10weeks ago Vein Imaging CFV (L): compressive, spontaneous, phasic, augmentation FEM (L): compressive, spontaneous, phasic, augmentation POP (L): compressive, spontaneous, phasic, augmentation DFV (L): compressive, spontaneous, phasic, augmentation PTV (L): compressive, spontaneous, phasic, augmentation GSV (L): compressive, spontaneous, phasic, augmentation SSV (L): compressive, spontaneous, phasic, augmentation Peroneals (L):compressive, spontaneous, phasic, augmentation GAS (L): compressive, spontaneous, phasic, augmentation Findings No evidence of DVT or superficial thrombophlebitis in the veins scanned of the left lower extremity. Conclusion No evidence of DVT Electronically signed by : Jackelin Henderson, 08/24/2020 17:03:08
== END ==
PROVIDERS: PCP Physician Assistant; Visit Provider Nurse Practitioner Family
DX: R60.0 Localized edema (principal); Z96.652 Presence of left artificial knee joint
CPT/HCPCS: 93971

== ENCOUNTER → 2020-08-31 14:47 | Outpatient (CLI) | payer MEDICAID, SELFPAY ==
--- NOTE | 2020-08-31 | US_ITS ---
APPROVED REPORT Exam Type: Ankle to Brachial Index Correspondence Section Supervisor: Jose RCS, RVS Indications post op total lt knee 6-8wk, lt leg swelling, decreased pulses Pressures/Indices Right Indices Left Indices Brachial 166.00 mmHg Brachial 168.00 mmHg Low Thigh 185.00 mmHg 1.10 Low Thigh 174.00 mmHg 1.04 Calf 185.00 mmHg 1.10 Calf 180.00 mmHg 1.07 Ankle(PT) 192.00 mmHg 1.14 Ankle(PT) 175.00 mmHg 1.04 Ankle(DP) 187.00 mmHg 1.11 Ankle(DP) 184.00 mmHg 1.10 Digit 144.00 mmHg 0.86 Digit 159.00 mmHg 0.95 Findings RT XOCHITL=1.14 LT XOCHITL=1.10 RT TPI=0.86 LT TPI=0.95 Conclusion RT XOCHITL=1.14 LT XOCHITL=1.10 RT TPI=0.86 LT TPI=0.95 Normal appearing resting noninvasive lower extremity arterial study. Electronically signed by : Thien Lorenzo MD 08/31/2020 16:13:44
== END ==
PROVIDERS: PCP Physician Assistant; Visit Provider Physician Assistant
DX: M79.662 Pain in left lower leg (principal); M79.89 Other specified soft tissue disorders
CPT/HCPCS: 93923

== ENCOUNTER → 2020-09-13 07:19 | Outpatient (CLI) | payer MEDICAID, SELFPAY ==
--- NOTE | 2020-09-13 07:27 | CT_ITS ---
Procedure: CT ANGIO LE BI CLINICAL HISTORY: rule out arterial disease Lower lt leg swelling Lt knee replaced x10wks ago Swelling started [id number] COMPARISON: No exams were available for comparison TECHNIQUE: IV Contrast: 100ml Isovue 370 Axial images obtained with sagittal and coronal reformats. All CT scans at the facility use one or more dose reduction, viz: automated exposure control, ma/kV adjustment per patient size (including targeted exams where dose is matched to indication, i.e. head), or iterative reconstruction technique. FINDINGS: Imaging begins just below the aortic bifurcation. The common iliac arteries, superficial femoral arteries and profundus femora have an unremarkable appearance bilaterally. The right popliteal artery and tibial peroneal trunk an unremarkable appearance. On the initial runoff images there is poor opacification the right lower extremity runoff vessels. Prominent artifact is present in the left popliteal region from the left knee prosthesis obscuring arterial evaluation on several images. Popliteal artery however does appear to be patent on the left with extreme windowing. There is 3 vessel runoff on the left. Three-vessel runoff is present on the right. No stenotic lesions apparent. Nonvascular mild prominence of the prostate measuring 6.2 cm. Mildly prominent inguinal nodes are present bilaterally measuring up to 2.8 by 1.6 cm on the left. Status post total knee replacement on the left. There is significant artifact with prominent soft tissue swelling anteriorly. Small knee joint effusion is present on the left. There are osteoarthritic changes of the right knee with small right knee joint effusion. There is mild subcutaneous soft tissue swelling of the left lower extremity. IMPRESSION: Unremarkable bilateral lower extremity CT angio with the exception of poor visualization of the popliteal artery on the left due to artifact from the knee prosthesis. The popliteal artery does appear patent at this region with extreme windowing. No obvious popliteal artery aneurysm. Status post left knee replacement with small left knee joint effusion and anterior soft tissue swelling. Mild subcutaneous edema of the left lower extremity. Moderate osteoarthritic changes of the right knee with knee joint effusion. Mild inguinal adenopathy slightly more prominent on the left compared to the right Dictated by: Thien Lorenzo MD 09/14/2020 10:31 Thien Lorenzo MD in [place] 09/14/2020 10:31
[2020-09-13 07:39] LABS: Chloride 98 mmol/L (98-107)
[2020-09-13 07:40] LABS: Potassium 4.3 mmoL/L (3.5-5.1); Sodium 134 mmol/L (136-145)
[2020-09-13 07:42] LABS: Blood Urea Nitrogen 6 mg/dl (9-20); Estimated Glomerular Filt Rate 99 ml/min (>60); GFR (African American) 119 ML/MIN (>60)
[2020-09-13 07:43] LABS: Anion Gap 9.3 mEq/L (5-15); Calcium 8.9 mg/dl (8.4-10.2); Carbon Dioxide 31 mmol/L (22.0-30.0); Glucose 95 mg/dl (74-100)
== END ==
PROVIDERS: Visit Provider Physician Assistant
DX: R60.0 Localized edema; M79.89 Other specified soft tissue disorders
CPT/HCPCS: 36415; 73701; 80048; Q9967

== ENCOUNTER 2020-09-17 22:54 | Emergency (ER) | payer MEDICAID, SELFPAY ==
[2020-09-17 23:04] VITALS: BP 187/116; PULSE 76; RESP 18; TEMP 36.9; O2SAT 96; BMI 29.8
[2020-09-17 23:07] VITALS: BMI 29.8
--- NOTE | 2020-09-17 23:07 | XR_ITS ---
PROCEDURE INFORMATION: Exam: XR Chest Exam date and time: 09/17/2020 11:07 PM Age: 60 years old Clinical indication: Patient HX: Hiccups followed by vomiting for last few days, prescribed meds for it but hasn't been able to keep them down, nonsmoker, no SX; Additional info: Cp TECHNIQUE: Imaging protocol: XR of the chest. Views: 2 views. COMPARISON: CR XR CHEST PORTABLE 12/16/2019 12:15 PM FINDINGS: Lungs: Unremarkable. No consolidation. Pleural spaces: Unremarkable. No pleural effusion. No pneumothorax. Heart/Mediastinum: Unremarkable. No cardiomegaly. Bones/joints: Mild multilevel degenerative changes of the spine. IMPRESSION: No acute findings.
--- NOTE | 2020-09-17 23:07 | ECG_ITS ---
APPROVED REPORT Exam: Resting ECG HR:76 bpm ECG Measurements Heart Rate 76 AXES AZ 192 P 34 QRSd 72 QRS -33 QT 360 T 21 QTc 405 Conclusion Normal sinus rhythm Left axis deviation Late r wave progression, unchanged Abnormal ECG Electronically signed by : Robbi Donahue, 09/18/2020 08:50:29
[2020-09-17 23:26] LABS: Basophils # 0.1 K/mm3 (0-0.2); Basophils % 0.6 % (0.1-2.0); Eosinophils # 0.3 K/mm3 (0.0-0.4); Eosinophils % 2.8 % (0.1-12.0); Hematocrit 50.3 % (42.0-52.0); Hemoglobin 17.2 g/dL (14.1-18.0); Lymphocytes # 1.7 K/mm3 (0.7-4.5); Lymphocytes % 17.8 % (10-50); Mean Corpuscular HGB Conc 34.2 g/dL (31.8-35.4); Mean Corpuscular Hemoglobin 31.9 pg (27.0-31.2); Mean Corpuscular Volume 93.3 fl (80-94); Mean Platelet Volume 8.4 fl (7.4-10.4); Monocytes # 0.6 K/mm3 (0.1-1.0); Monocytes % 6.2 % (1.7-9.3); Neutrophils % 72.6 % (37.0-80.0); Platelet Count 197 K/mm3 (142-424); Red Blood Count 5.39 M/mm3 (4.60-6.20); Red Cell Distribution Width 14.8 % (11.5-17.5); White Blood Count 9.6 K/mm3 (4.8-10.8)
[2020-09-17 23:30] VITALS: BP 159/102; PULSE 75; RESP 18; O2SAT 93
[2020-09-17 23:35] LABS: Alanine Aminotransferase 74 U/L (12-78); Albumin Level 4.4 g/dl (3.5-5.0); Alkaline Phosphatase 69 U/L (38-126); Anion Gap 8.8 mEq/L (5-15); Aspartate Amino Transferase 51 U/L (17-59); Bilirubin,Direct 0.5 mg/dl (0.0-0.4); Bilirubin,Indirect 0.3 mg/dL (0.0-0.9); Bilirubin,Total 0.8 mg/dl (0.2-1.3); Bilirubin,Unconjugated 0.4 mg/dL (0.0-1.1); Blood Urea Nitrogen 7 mg/dl (9-20); Calcium 9.1 mg/dl (8.4-10.2); Carbon Dioxide 31 mmol/L (22.0-30.0); Chloride 98 mmol/L (98-107); Creatinine Clearance Estimated 191 mL/min (50-200); Estimated Glomerular Filt Rate 115 ml/min (>60); GFR (African American) 139 ML/MIN (>60); Glucose 104 mg/dl (74-100); Magnesium 1.9 mg/dl (1.6-2.3); Phosphorous 3.4 mg/dl (2.5-4.5); Potassium 3.8 mmoL/L (3.5-5.1); Sodium 134 mmol/L (136-145); Total Protein,Serum 6.9 g/dl (6.3-8.2)
[2020-09-17 23:40] LABS: C-Reactive Protein 14.9 mg/L (0-4)
--- NOTE | 2020-09-17 23:46 | HMH.EDCP ---
ED Disposition Clinical Impression: Atypical chest pain, Lumbar pain Disposition: Home, Self-Care Condition on Discharge: Good Instructions: DI for Atypical Chest Pain Additional Instructions: see pcp for follow up Referrals: Pat Cheung PA [Primary Care Provider] - - Critical Care Critical Care Time: No Attestation: On 09/17/20, the high probability of a clinically significant, sudden or life threatening deterioration of the following system(s) required my full and direct attention, intervention and personal management. The time I documented below is in addition to time spent performing reported procedures but includes the following listed in this critical care notation. Medical Decision Making - Medical Records Medical records reviewed: Yes: I reviewed the patient's medical records. - Luis A Inquiry Pt receiving controlled substance: No Vital Signs: 09/17/20 23:04 Temperature 98.4 F Temperature Source Oral Pulse Rate [Right Brachial] 76 Respiratory Rate 18 Blood Pressure [Right Arm] 187/116 H Blood Pressure Mean [Right Arm] 139 Blood Pressure Source [Right Arm] Automatic Cuff Blood Pressure Position [Right Arm] Sitting 02 Sat by Pulse Oximetry 96 Oxygen Delivery Method Room Air - Lab Data Lab results reviewed: Yes: I reviewed the patient's lab results. Lab Results 09/17/20 23:13: WBC 9.6, RBC 5.39, Hgb 17.2, Hct 50.3, MCV 93.3, MCH 31.9 H, MCHC 34.2, RDW 14.8, Plt Count 197, MPV 8.4, Neut % (Auto) 72.6, Lymph % (Auto) 17.8, Ceiba % (Auto) 6.2, Eos % (Auto) 2.8, Baso % (Auto) 0.6, Neut # (Auto) 7.0, Lymph # (Auto) 1.7, Ceiba # (Auto) 0.6, Eos # (Auto) 0.3, Baso # (Auto) 0.1, ESR 4 09/17/20 23:13: Sodium 134 L, Potassium 3.8, Chloride 98, Carbon Dioxide 31 H, Anion Gap 8.8, BUN 7 L, Creatinine 0.70, Estimated Creat Clear 191, Estimated GFR 115, Est GFR ( Amer) 139, Glucose 104 H, Calcium 9.1, Phosphorus 3.4, Magnesium 1.9, Total Bilirubin 0.8, Direct Bilirubin 0.5 H, Conjugated Bilirubin 0.0, Indirect Bilirubin 0.3, Unconjugated Bilirubin 0.4, AST 51, ALT 74, Alkaline Phosphatase 69, Troponin I 0.02, C-Reactive Protein 14.9 H, Total Protein 6.9, Albumin 4.4, Procalcitonin 0.086 Result diagrams: 09/17/20 23:13 09/17/20 23:13 Orders (Tests/Meds): ED MEDICATIONS Generic Name Dose Route Start Last Admin Trade Name Freq PRN Reason Stop Dose Admin Sodium Chloride 1,000 mls @ 999 mls/hr 09/17/20 23:15 09/17/20 23:20 Sod Chlor 0.9% 1000ml Bag IV 09/18/20 00:15 999 mls/hr .Q1H1M TARA Administration Sodium Chloride 8 ml 09/17/20 23:11 Sodium Chloride 0.9% 10ml Vial IV 10/17/20 23:10 NEEDED PRN dilute pepcid Discontinued Medications Generic Name Dose Route Start Last Admin Trade Name Freq PRN Reason Stop Dose Admin Famotidine 20 mg 09/17/20 23:11 09/17/20 23:20 Famotidine 20mg/2ml Vial IV 09/17/20 23:12 20 mg ONCE ONE Administration Ketorolac Tromethamine 30 mg 09/17/20 23:12 09/17/20 23:20 Ketorolac 30mg/Ml Vial IV 09/17/20 23:13 30 mg ONCE ONE Administration Metoclopramide HCl 10 mg 09/17/20 23:11 09/17/20 23:20 Metoclopramide Hcl 10mg/2ml Vial IVP 09/17/20 23:12 10 mg ONCE ONE Administration Ondansetron HCl 4 mg 09/17/20 23:11 09/17/20 23:20 Ondansetron 4mg/2ml Vial IV 09/17/20 23:12 4 mg ONCE ONE Administration ORDERS Category Date Time Status Covid-19 Nasal PCR (H) Routine Lab 09/17/20 23:25 Received Troponin I Q3H Lab 09/18/20 02:15 Ordered Troponin I Q3H Lab 09/18/20 05:15 Ordered - Radiology Data #1 Image(s): Chest Image Reviewed: Yes I reviewed the patient's radiology image Preliminary Findings: Normal/NAD - ECG Data Tracing #1 Normal Sinus Rhythm: Yes Ischemic changes: non-specific ST-T wave changes Medical Decision Narrative: stable labs and exam - neg gxt last yr Chest Pain HPI - General Chief Complaint: Chest Pain Stated Complaint: vomiting.ho
[2020-09-17 23:56] LABS: Erythrocyte Sedimentation Rate 4 mm/hr (0-20)
[2020-09-18 00:06] LABS: Troponin I 0.02 ng/ml (0.00-0.034)
[2020-09-18 00:09] LABS: Procalcitonin 0.086 ng/mL (0.0-2.0)
[2020-09-18 00:15] VITALS: BP 164/81; PULSE 65; RESP 21; O2SAT 95
[2020-09-18 00:37] VITALS: BP 166/79; PULSE 72; RESP 18; TEMP 36.8; O2SAT 97
== END 2020-09-18 00:41 | disposition home or self-care (01) ==
PROVIDERS: Emergency Provider Emergency Medicine; PCP Physician Assistant
DX: R07.89 Other chest pain (principal); M54.5 Low back pain; R11.2 Nausea with vomiting, unspecified; I10 Essential (primary) hypertension; F17.290 Nicotine dependence, other tobacco product, uncomplicated
CPT/HCPCS: 71046; 80048; 80076; 83735; 84100; 84145; 84484; 85025; 85651; 86140; 93005; 96365; 96375; 99283; J2405; U0003

== ENCOUNTER 2020-09-19 11:30 | Outpatient (CLI) | payer MEDICAID, SELFPAY ==
[2020-09-19 11:35] VITALS: BMI 30.4
[2020-09-19 11:50] VITALS: BP 149/92; PULSE 67; RESP 17; TEMP 36.4; O2SAT 97
[2020-09-19 11:52] LABS: Basophils # 0.1 K/mm3 (0-0.2); Basophils % 0.7 % (0.1-2.0); Eosinophils # 0.3 K/mm3 (0.0-0.4); Eosinophils % 3.7 % (0.1-12.0); Hemoglobin 16.2 g/dL (14.1-18.0); Lymphocytes # 1.9 K/mm3 (0.7-4.5); Lymphocytes % 23.9 % (10-50); Mean Corpuscular HGB Conc 35.3 g/dL (31.8-35.4); Mean Corpuscular Hemoglobin 31.9 pg (27.0-31.2); Mean Corpuscular Volume 90.4 fl (80-94); Mean Platelet Volume 8.4 fl (7.4-10.4); Monocytes # 0.5 K/mm3 (0.1-1.0); Monocytes % 5.8 % (1.7-9.3); Neutrophils # 5.2 K/mm3 (1.8-7.8); Platelet Count 191 K/mm3 (142-424); Red Blood Count 5.09 M/mm3 (4.60-6.20); Red Cell Distribution Width 14.8 % (11.5-17.5); White Blood Count 7.9 K/mm3 (4.8-10.8)
[2020-09-19 12:09] LABS: Alanine Aminotransferase 58 U/L (12-78); Albumin/Globulin Ratio 1.5 (1.1-1.8); Alkaline Phosphatase 88 U/L (38-126); Anion Gap 8.9 mEq/L (5-15); Aspartate Amino Transferase 46 U/L (17-59); Bilirubin,Total 0.6 mg/dl (0.2-1.3); Blood Urea Nitrogen 7 mg/dl (9-20); Calcium 9.4 mg/dl (8.4-10.2); Carbon Dioxide 27 mmol/L (22.0-30.0); Chloride 103 mmol/L (98-107); Creatinine Clearance Estimated 157 mL/min (50-200); Estimated Glomerular Filt Rate 99 ml/min (>60); GFR (African American) 119 ML/MIN (>60); Globulin 2.6 g/dL (1.3-3.2); Glucose 113 mg/dl (74-100); Potassium 3.9 mmoL/L (3.5-5.1); Sodium 135 mmol/L (136-145); Total Protein,Serum 6.6 g/dl (6.3-8.2)
[2020-09-19 12:15] LABS: C-Reactive Protein 17.9 mg/L (0-4)
[2020-09-19 12:56] VITALS: BP 142/87; PULSE 62; RESP 17; TEMP 36.4; O2SAT 97
[2020-09-19 13:18] LABS: Erythrocyte Sedimentation Rate 20 mm/hr (0-20)
== END 2020-09-19 12:57 | disposition home or self-care (01) ==
PROVIDERS: PCP Physician Assistant; Visit Provider Physician Assistant
DX: E86.0 Dehydration (principal); R11.10 Vomiting, unspecified
CPT/HCPCS: 80053; 85025; 85651; 86140; 96360; 96374

== ENCOUNTER → 2021-05-02 13:34 | Outpatient (CLI) | payer MEDICAID, SELFPAY ==
[2021-05-02 13:57] LABS: Basophils # 0.1 K/mm3 (0-0.2); Basophils % 1.1 % (0.1-2.0); Eosinophils # 0.2 K/mm3 (0.0-0.4); Eosinophils % 3.3 % (0.1-12.0); Hematocrit 54.4 % (42.0-52.0); Lymphocytes % 31.1 % (10-50); Mean Corpuscular HGB Conc 33.7 g/dL (31.8-35.4); Mean Corpuscular Hemoglobin 33.7 pg (27.0-31.2); Mean Corpuscular Volume 100.1 fl (80-94); Monocytes # 0.5 K/mm3 (0.1-1.0); Monocytes % 8.2 % (1.7-9.3); Neutrophils # 3.7 K/mm3 (1.8-7.8); Neutrophils % 56.2 % (37.0-80.0); Platelet Count 243 K/mm3 (142-424); Red Blood Count 5.44 M/mm3 (4.60-6.20); Red Cell Distribution Width 13.3 % (11.5-17.5); White Blood Count 6.5 K/mm3 (4.8-10.8)
[2021-05-02 14:10] LABS: Alanine Aminotransferase 95 U/L (12-78); Albumin Level 4.6 g/dl (3.5-5.0); Albumin/Globulin Ratio 1.7 (1.1-1.8); Alkaline Phosphatase 77 U/L (38-126); Anion Gap 11.6 mEq/L (5-15); Aspartate Amino Transferase 92 U/L (17-59); Bilirubin,Total 0.6 mg/dl (0.2-1.3); Blood Urea Nitrogen 9 mg/dl (9-20); Calcium 9.8 mg/dl (8.4-10.2); Carbon Dioxide 28 mmol/L (22.0-30.0); Chloride 102 mmol/L (98-107); Estimated Glomerular Filt Rate 115 ml/min (>60); GFR (African American) 139 ML/MIN (>60); Globulin 2.7 g/dL (1.3-3.2); Glucose 89 mg/dl (74-100); Potassium 4.6 mmoL/L (3.5-5.1); Sodium 137 mmol/L (136-145); Total Protein,Serum 7.3 g/dl (6.3-8.2)
[2021-05-02 14:18] LABS: C-Reactive Protein 2.7 mg/L (0-4)
[2021-05-02 15:21] LABS: Erythrocyte Sedimentation Rate 17 mm/hr (0-20)
[2021-05-02 19:54] LABS: Hemoglobin 18.3 g/dL (14.1-18.0)
[2021-05-03 09:13] LABS: Hep A Ab, IgM Negative (Negative); Hepatitis B Core Antibody IgM Negative (Negative); Hepatitis B Surface Antigen Negative (Negative); Hepatitis C Antibody <0.1 s/co ratio (0.0-0.9)
[2021-05-03 14:30] LABS: Anti-Centromere B Antibodies <0.2 AI (0.0-0.9); Anti-DNA (DS) Ab Qn <1 IU/mL (0-9); Anti-Jo-1 <0.2 AI (0.0-0.9); Anti-Smith Antibody <0.2 AI (0.0-0.9); Antichromatin Antibodies <0.2 AI (0.0-0.9); Antiscleroderma-70 Antibodies <0.2 AI (0.0-0.9); RNP Antibodies <0.2 AI (0.0-0.9); Sjogren's Anti-SS-A <0.2 AI (0.0-0.9); Sjogren's Anti-SS-B <0.2 AI (0.0-0.9)
[2021-05-03 16:13] LABS: RA Latex Turbid. <10.0 IU/mL (<14.0)
[2021-05-03 23:08] LABS: Anti-Cyclic Citrullinated Pept 3 units (0-19)
== END ==
PROVIDERS: Visit Provider Physician Assistant
DX: M25.50 Pain in unspecified joint (principal); R79.82 Elevated C-reactive protein (CRP); R74.8 Abnormal levels of other serum enzymes
CPT/HCPCS: 80053; 80074; 85025; 85651; 86140; 86200; 86225; 86235; 86431

== ENCOUNTER 2021-06-07 10:58 | Emergency (ER) | payer MEDICAID, SELFPAY ==
[2021-06-07 10:58] VITALS: BP 169/69; PULSE 61; RESP 16; TEMP 36.7; O2SAT 98; BMI 31.6
--- NOTE | 2021-06-07 11:47 | HMH.EDGENADL ---
ED Disposition Clinical Impression: Lumbar strain Qualifiers: Encounter type: initial encounter Qualified Code(s): S39.012A - Strain of muscle, fascia and tendon of lower back, initial encounter Disposition: Home, Self-Care Condition on Discharge: Good Prescriptions: methocarbamoL [Methocarbamol] 750 mg PO BID PRN 3 Days #6 tab PRN Reason: Moderate Pain Transmission Status: Pending to [facility]acy [facility][id number] Referrals: Pat Cheung PA [Primary Care Provider] - - Critical Care Critical Care Time: No Attestation: On 06/07/21, the high probability of a clinically significant, sudden or life threatening deterioration of the following system(s) required my full and direct attention, intervention and personal management. The time I documented below is in addition to time spent performing reported procedures but includes the following listed in this critical care notation. Medical Decision Making - Luis A Inquiry Pt receiving controlled substance: No Vital Signs: 06/07/21 10:58 Temperature 98.1 F Temperature Source Oral Pulse Rate [Right Radial] 61 Respiratory Rate 16 Blood Pressure [Right Arm] 169/69 H Blood Pressure Mean [Right Arm] 102 Blood Pressure Source [Right Arm] Automatic Cuff Blood Pressure Position [Right Arm] Sitting 02 Sat by Pulse Oximetry 98 Oxygen Delivery Method Room Air Orders (Tests/Meds): ED MEDICATIONS Discontinued Medications Generic Name Dose Route Start Last Admin Trade Name Freq PRN Reason Stop Dose Admin Ketorolac Tromethamine 30 mg 06/07/21 11:45 Ketorolac 30mg/Ml Vial IM 06/07/21 11:46 ONCE ONE Methocarbamol 1,000 mg 06/07/21 11:45 Methocarbamol 500mg Tablet PO 06/07/21 11:46 ONCE ONE Medical Decision Narrative: 61-year-old male presents emergency department with a 2 of left lateral lower back pain without midline tenderness, without fever, without IV drug use history, without weakness, without urinary or bowel incontinence or saddle anesthesia or sensation changes in the left lower extremity. Patient had increased left lateral back pain with left straight leg raise without precipitation of left lower extremity radicular pain. Patient symptoms are consistent with muscle strain without concern for acute cord compression at this time. Patient was given 5 mg p.o. oxycodone in the emergency department with 4 mg Zofran ODT in the emergency department for antiemesis prophylaxis. Patient was given 30 mg IM Toradol in the emergency department and 1000 mg p.o. methocarbamol in the emergency department. Patient was given prescription for methocarbamol and instructions to follow-up with his primary care physician. Patient was amenable to this plan and was given return precautions for the emergency department. Patient did not have limitation of range of motion about the hip and has no history of trauma, without concern for osseous or infectious pathology associated with the hip. General Adult HPI - General Chief complaint: PAIN Stated complaint: severe back pain Time Seen by Provider: 06/07/21 11:47 Mode of Arrival: Wheelchair Limitations: No Limitations Description of Symptoms (Recalled from ER Triage Doc. by RN): pt c/o L sided lower back pain. Pt reports pain began yesterday but worsened upon waking up this morning. Pt denies any radiation of pain, denies numbness/tingling or decreased sensation. Pt denies urinary symptoms. Pt staes NO known injury. - History of Present Illness HPI narrative: Patient is a 61-year-old male presenting to the emergency department with left lateral lower back pain that initiated yesterday, with patient stating that this was mild, stating that his pain has been severe today. Patient denies weakness, saddle anesthesia, urinary or bowel incontinence or difficulty with micturition or bowel movements. Patient denies fever, denies IV drug use, states that he has past medical history of hypertension, and denies surg
[2021-06-07 12:05] VITALS: BP 190/100; PULSE 68; RESP 20; TEMP 36.7; O2SAT 98
== END 2021-06-07 12:05 | disposition home or self-care (01) ==
PROVIDERS: Emergency Provider Student in an Organized Health Care Education/Training Program; PCP Physician Assistant
DX: S39.012A Strain of muscle, fascia and tendon of lower back, initial encounter (principal); I10 Essential (primary) hypertension; F17.290 Nicotine dependence, other tobacco product, uncomplicated
CPT/HCPCS: 96372; 99281; 99283

== ENCOUNTER 2021-06-09 12:09 | Emergency (ER) | payer MEDICAID, SELFPAY ==
[2021-06-09 12:10] VITALS: BP 159/107; PULSE 88; RESP 22; TEMP 37; O2SAT 98; BMI 32.2
--- NOTE | 2021-06-09 12:14 | PC.NURSE ---
ER at bedside
--- NOTE | 2021-06-09 12:19 | CT_ITS ---
FINAL REPORT TECHNIQUE: Axial images were performed through the lumbar spine by computed tomography. Sagittal reconstruction images were also performed. This study was performed with techniques to keep radiation doses as low as reasonably achievable, (ALARA). Individualized dose reduction techniques using automated exposure control or adjustment of mA and/or kV according to the patient's size were employed. CLINICAL HISTORY: back pain FINDINGS: The vertebrae are of normal height. There is no malalignment. There is moderate anterior osteophyte formation at L2-L3 and L3-L4. T12-L1: Right paracentral posterior osteophyte with moderate compromise on the spinal canal. L1-L2: Mild right and moderate left neural foraminal narrowing. L2-L3: Large disc bulge with moderate to high-grade spinal canal stenosis. Moderate bilateral neural foraminal narrowing. L3-L4: Large disc bulge with broad-based midline disc protrusion. Moderate to high-grade spinal and bilateral neural foraminal narrowing. L4-L5: Large disc bulge with moderate to high-grade spinal and bilateral neural foraminal narrowing. L5-S1: Moderate diffuse disc bulge with endplate hypertrophy. Moderate right and high-grade left neural foraminal narrowing. IMPRESSION: Multilevel disc bulges with significant spinal canal stenosis at L2-L3, L3-L4, and L4-L5. Disc bulge at L5-S1 with high-grade left neural foraminal narrowing. Right paracentral posterior osteophyte at T12-L1. Reviewed, Interpreted and Dictated by Angel Hernandez MD Transcribed by Marquis Bettencourt Authenticated by Angel Hernandez MD on 06/09/2021 01:34:52 PM [facility]
--- NOTE | 2021-06-09 12:35 | PC.NURSE ---
PT GIVEN URINAL BUT STATES HE IS UNABLE TO URINATE AT THIS TIME
[2021-06-09 12:37] VITALS: BP 167/101; PULSE 61; RESP 15; O2SAT 98
--- NOTE | 2021-06-09 13:05 | PC.NURSE ---
patient back from radiology
--- NOTE | 2021-06-09 13:16 | HMH.EDBACK ---
ED Disposition Clinical Impression: Lumbar radiculopathy, Herniated intervertebral disc of lumbar spine Sciatica Qualifiers: Laterality: left Qualified Code(s): M54.32 - Sciatica, left side Disposition: Home, Self-Care Condition on Discharge: Good Instructions: DI for Back Pain With Sciatica Prescriptions: Hydrocod/Acet 5/325 mg [[place] 5/325mg tablet] 1 tab PO Q6HP PRN #10 tab PRN Reason: Moderate Pain Transmission Status: Received by [id number] Cyclobenzaprine HCl [Cyclobenzaprine 10mg Tab*] 10 mg PO TIDP PRN #30 tab PRN Reason: Moderate Pain Transmission Status: Pending to [id number] Referrals: Pat Cheung PA [Primary Care Provider] - Vikash Bass [Referring] - - Critical Care Critical Care Time: No Attestation: On 06/09/21, the high probability of a clinically significant, sudden or life threatening deterioration of the following system(s) required my full and direct attention, intervention and personal management. The time I documented below is in addition to time spent performing reported procedures but includes the following listed in this critical care notation. Medical Decision Making - Medical Records Medical records reviewed: Yes: I reviewed the patient's medical records. - Luis A Inquiry Pt receiving controlled substance: Yes Luis A was queried for this patient: Yes ([id number] ) Risks and benefits of using a controlled substance: were discussed with pt by me Vital Signs: 06/09/21 12:10 06/09/21 12:37 06/09/21 13:31 Temperature 98.6 F Temperature Source Oral Pulse Rate 61 70 Pulse Rate [Radial] 88 Respiratory Rate 22 15 16 Blood Pressure 167/101 H 159/93 H Blood Pressure [Right Arm] 159/107 H Blood Pressure Mean 123 115 Blood Pressure Mean [Right Arm] 124 Blood Pressure Position [Right Arm] Sitting 02 Sat by Pulse Oximetry 98 98 99 Oxygen Delivery Method Room Air 06/09/21 14:01 Temperature Temperature Source Pulse Rate 71 Pulse Rate [Radial] Respiratory Rate 15 Blood Pressure 172/98 H Blood Pressure [Right Arm] Blood Pressure Mean 149 Blood Pressure Mean [Right Arm] Blood Pressure Position [Right Arm] 02 Sat by Pulse Oximetry 99 Oxygen Delivery Method - Lab Data Lab Results 06/09/21 14:07: Urine Color Yellow, Urine Appearance Clear, Urine pH 6.5, Ur Specific [place] 1.015, Urine Protein Negative, Urine Glucose (UA) Negative, Urine Ketones Negative, Urine Blood Negative, Urine Nitrate Negative, Urine Bilirubin Negative, Urine Urobilinogen 0.2, Ur Leukocyte Esterase Negative, Urine RBC None, Urine WBC 3-5, Ur Squamous Epith Cells Occasional, Urine Bacteria None Orders (Tests/Meds): ED MEDICATIONS Generic Name Dose Route Start Last Admin Trade Name Freq PRN Reason Stop Dose Admin Hydrocodone Bitart/Acetaminophen 2 tab 06/09/21 14:27 Hydrocodone/Apap 5/325 Mg Tablet PO 06/09/21 14:28 ONCE ONE Discontinued Medications Generic Name Dose Route Start Last Admin Trade Name Freq PRN Reason Stop Dose Admin Morphine Sulfate 4 mg 06/09/21 12:21 06/09/21 12:26 Morphine 2mg/Ml Syringe IM 06/09/21 12:22 4 mg ONCE ONE Administration Ondansetron HCl 4 mg 06/09/21 12:21 06/09/21 12:26 Ondansetron 4mg/2ml Vial IV 06/09/21 12:22 4 mg ONCE ONE Administration - CT Data CT Scan: L-Spine Time Received: 14:[address] Reviewed: Yes: I have reviewed the patient's CT results, I have viewed the radiologist's interpretation Findings Narrative: IMPRESSION: Multilevel disc bulges with significant spinal canal stenosis at L2-L3, L3-L4, and L4-L5. Disc bulge at L5-S1 with high-grade left neural foraminal narrowing. Right paracentral posterior osteophyte at T12-L1. - Reevaluation(s) Time: 14:28 Reevaluation #1: On reevaluation, the patient's pain has improved. He does have evidence of significant disc herniation with consistency of his physical examination. There is no evidence
[2021-06-09 13:31] VITALS: BP 159/93; PULSE 70; RESP 16; O2SAT 99
[2021-06-09 14:01] VITALS: BP 172/98; PULSE 71; RESP 15; O2SAT 99
[2021-06-09 14:14] LABS: Microscopic, Urine URINE MICROSCOPIC (MICROSCOPIC)
[2021-06-09 14:16] LABS: Appearance,Urine CLEAR (Clear); Bilirubin,Urine Negative (Negative); Blood, Urine Negative (Negative); Color,Urine YELLOW (Yellow); Glucose,Urine (UA) Negative (Negative); Ketones,Urine Negative (Negative); Leukocyte Esterase,Urine Negative (Negative); Nitrate,Urine Negative (Negative); PH,Urine 6.5 (5.0-8.5); Protein,Urine Negative (Negative); Specific Gravity, Urine 1.015 (1.005-1.030); Urobilinogen,Urine 0.2 EU/dl (0.2)
[2021-06-09 14:27] LABS: Squamous Epithelial Cell,Urine Occasional #/hpf (0-5)
[2021-06-09 14:31] VITALS: BP 168/99; PULSE 74; RESP 16; O2SAT 98
--- NOTE | 2021-06-09 14:40 | PC.NURSE ---
PT STATES PAIN WORSE AFTER GETTING CT SCAN. PT GIVEN PO PAIN MEDS. TOLD PT THAT PAIN NEEDS TO IMPROVE PRIOR TO D/C
[2021-06-09 15:04] VITALS: BP 178/100; PULSE 88; RESP 18; TEMP 36.6; O2SAT 98
== END 2021-06-09 15:05 | disposition home or self-care (01) ==
PROVIDERS: Emergency Provider Emergency Medicine; PCP Physician Assistant
DX: M54.16 Radiculopathy, lumbar region (principal); M54.32 Sciatica, left side
CPT/HCPCS: 72131; 81001; 96372; 99282; 99284; J2405

== ENCOUNTER → 2021-11-21 06:02 | Outpatient (CLI) | payer MEDICAID, SELFPAY ==
[2021-11-21 20:13] LABS: Vitamin B12 > 1000 pg/mL (239-931)
[2021-11-22 12:04] LABS: Chloride 103 mmol/L (98-107); Potassium 4.6 mmoL/L (3.5-5.1); Sodium 138 mmol/L (136-145)
[2021-11-22 12:06] LABS: Basophils # 0.1 K/mm3 (0-0.2); Basophils % 1.2 % (0.1-2.0); Eosinophils # 0.3 K/mm3 (0.0-0.4); Eosinophils % 2.6 % (0.1-12.0); Hematocrit 56.2 % (42.0-52.0); Hemoglobin 16.9 g/dL (14.1-18.0); Lymphocytes # 2.4 K/mm3 (0.7-4.5); Lymphocytes % 21.8 % (10-50); Mean Corpuscular HGB Conc 30.1 g/dL (31.8-35.4); Mean Corpuscular Hemoglobin 33.6 pg (27.0-31.2); Mean Corpuscular Volume 111.4 fl (80-94); Mean Platelet Volume 11.3 fl (7.4-10.4); Monocytes # 0.7 K/mm3 (0.1-1.0); Monocytes % 6.6 % (1.7-9.3); Neutrophils # 7.5 K/mm3 (1.8-7.8); Neutrophils % 67.7 % (37.0-80.0); Platelet Count 276 K/mm3 (142-424); Red Blood Count 5.04 M/mm3 (4.60-6.20); Red Cell Distribution Width 13.9 % (11.5-17.5)
[2021-11-22 12:07] LABS: Cholesterol 182 mg/dl (140-200); Glucose 92 mg/dl (74-100)
[2021-11-22 12:08] LABS: Chol/HDL Ratio 4.2 (1-3.5); HDL Cholesterol 43 mg/dl (40-60)
[2021-11-22 12:38] LABS: Thyroid Stimulating Hormone 2.83 uIU/mL (0.465-4.68)
[2021-11-22 12:50] LABS: Alanine Aminotransferase 111 U/L (12-78); Albumin/Globulin Ratio 1.6 (1.1-1.8); Alkaline Phosphatase 106 U/L (38-126); Anion Gap 10.6 mEq/L (5-15); Aspartate Amino Transferase 84 U/L (17-59); Bilirubin,Total 0.5 mg/dl (0.2-1.3); Blood Urea Nitrogen 13 mg/dl (9-20); Carbon Dioxide 29 mmol/L (22.0-30.0); Estimated Glomerular Filt Rate 98 ml/min (>60); GFR (African American) 119 ML/MIN (>60); Globulin 2.5 g/dL (1.3-3.2); Total Protein,Serum 6.5 g/dl (6.3-8.2); Triglycerides 197 mg/dl (30-150); VLDL Cholesterol 39 mg/dL (0-40)
[2021-11-23 08:15] LABS: Testosterone,Total 449 ng/dL (264-916)
[2021-11-23 10:03] LABS: Direct LDL Cholesterol 103 mg/dL (100-129)
== END ==
PROVIDERS: PCP Physician Assistant; Visit Provider Physician Assistant
DX: R53.83 Other fatigue (principal); I10 Essential (primary) hypertension
CPT/HCPCS: 80053; 80061; 82607; 84403; 84443; 85025

== ENCOUNTER → 2022-04-24 14:21 | Outpatient (CLI) | payer MEDICAID, SELFPAY ==
--- NOTE | 2022-04-24 14:22 | CT_ITS ---
FINAL REPORT TECHNIQUE: Thin section axial CT images of the facial bones and sinuses were obtained without contrast. Coronal reformatted images were also obtained.This study was performed with techniques to keep radiation doses as low as reasonably achievable, (ALARA). Individualized dose reduction techniques using automated exposure control or adjustment of mA and/or kV according to the patient''''s size were employed. CLINICAL HISTORY: sinusitis FINDINGS: There is mild mucosal thickening of the maxillary sinuses. No fluid levels are identified. The ostiomeatal units have an unremarkable appearance. The nasal septum is in the midline. No fracture or acute bony abnormality is identified. IMPRESSION: Maxillary sinusitis. Reviewed, Interpreted and Dictated by Karson Jones III, MD Transcribed by Mona Sandoval Authenticated and [facility]
== END ==
PROVIDERS: PCP Physician Assistant; Visit Provider Student in an Organized Health Care Education/Training Program
DX: J32.9 Chronic sinusitis, unspecified (principal); R09.81 Nasal congestion
CPT/HCPCS: 70486

== ENCOUNTER 2023-07-16 08:00 | Outpatient (RCR) | payer MEDICAID, SELFPAY | END 2023-07-23 15:30 | disposition home or self-care (01) | LOC: PT 08:00 | PROVIDERS: Visit Provider Orthopaedic Surgery | DX: M25.562 Pain in left knee (principal); Z96.652 Presence of left artificial knee joint | CPT/HCPCS: 97010; 97014; 97110; 97163; 97164; 97530; G0283 ==

== ENCOUNTER 2023-08-15 08:52 | Outpatient (CLI) | payer MEDICAID, SELFPAY ==
--- NOTE | 2023-08-15 08:55 | US_ITS ---
FINAL REPORT CLINICAL HISTORY: CLAUDICATION,REST PAIN,NUMBNESS,BURNING,HTN FINDINGS: LOWER EXTREMITY SEGMENTAL PRESSURE MEASUREMENTS Pressure indices are as follows: RIGHT LOWER EXTREMITY: Upper thigh: 1.13 Calf: 1.21 Ankle, posterior tibial artery: 1.14 Ankle, dorsalis pedis: 1.23 Toe: 1.00 Comments: Normal LEFT LOWER EXTREMITY: Upper thigh: 1.05 Calf: 1.09 Ankle, posterior tibial artery: 1.11 Ankle, dorsalis pedis: 1.04 Toe: 0.97 Comments: Normal IMPRESSION: Normal ankle brachial indices. Reviewed, Interpreted and Dictated by Hortensia Negron MD Transcribed by Mona Sandoval Authenticated and [facility][1]
== END 2023-08-15 23:59 | disposition home or self-care (01) ==
LOC: RT 08:53
PROVIDERS: PCP Physician Assistant; Visit Provider Physician Assistant
DX: M79.662 Pain in left lower leg (principal); I70.212 Atherosclerosis of native arteries of extremities with intermittent claudication, left leg; I10 Essential (primary) hypertension; Z79.899 Other long term (current) drug therapy
CPT/HCPCS: 93923

== ENCOUNTER 2023-09-23 10:35 | Outpatient (CLI) | payer MEDICAID, SELFPAY ==
--- NOTE | 2023-09-23 10:35 | CA_ITS ---
FINAL REPORT TECHNIQUE: Ultrasound images of the deep venous system were obtained from the left groin to the calf veins. CLINICAL HISTORY: edema and numbness in LLE, recent L knee surgery FINDINGS: The deep venous system is normally compressible. Normal flow is identified. IMPRESSION: No evidence of left lower extremity DVT. Reviewed, Interpreted and Dictated by Karson Jones III, MD Transcribed by Karina Donaldson Authenticated and [facility]
--- NOTE | 2023-10-29 09:45 | CT_ITS ---
FINAL REPORT CLINICAL HISTORY: CT abdomen/pelvis with BLE runoff lower ext swelling COMPARISON: None FINDINGS: Post contrast axial imaging of the aorta and bilateral lower extremity was obtained and reviewed. This study was performed with techniques to keep radiation doses as low as reasonably achievable (ALARA). Individualized dose reduction techniques using automated exposure control or adjustment of mA and/or kV according to the patient's size were employed. There is no evidence of aortic aneurysm. There is no evidence of aortic stenosis. The celiac axis, superior mesenteric artery and inferior mesenteric artery are patent without stenosis. There is no evidence of renal artery stenosis. The iliac arteries are unremarkable, without stenosis. The internal iliac arteries are patent. Right: The right common femoral artery, deep femoral artery and superficial femoral artery are all patent, without stenosis. There is no stenosis of the popliteal artery. The anterior and posterior tibial and peroneal arteries are patent to the lower leg. The anterior and posterior tibial arteries are patent to the foot. Left: The left common femoral artery, deep femoral artery and superficial femoral artery are all patent, without stenosis. There is artifact from a total knee arthroplasty which prevents adequate visualization of the popliteal artery. The anterior and posterior tibial and peroneal arteries are patent to the lower leg. The anterior and posterior tibial arteries are patent to the foot. Review of the remaining abdomen and pelvis demonstrates no evidence of mass or adenopathy. There is no fluid collection or acute inflammatory process. IMPRESSION: No evidence of stenosis or occlusion. No acute process. Reviewed, Interpreted and Dictated by Delma Morejon MD Transcribed by Yesica Covarrubias Authenticated and . [facility]
[2023-10-29] MEDS: 0.9 % SODIUM CHLORIDE 50 ML VIAL IV (11:15)
[2023-10-29] MEDS: IOPAMIDOL-370 (76%);100ML BOTTLE 120 ML IV (11:15)
[2023-10-29] MEDS: SODIUM CHLORIDE 0.9% 10ML SYR (RAD ONLY) 10 ML IV (11:15)
== END 2023-09-23 23:59 | disposition home or self-care (01) ==
LOC: RT 10:35
PROVIDERS: PCP Physician Assistant; Visit Provider Nurse Practitioner Family
DX: M79.89 Other specified soft tissue disorders (principal); R20.0 Anesthesia of skin; R20.2 Paresthesia of skin; I73.9 Peripheral vascular disease, unspecified
CPT/HCPCS: 93971

== ENCOUNTER 2023-10-29 09:45 | Outpatient (CLI) | payer MEDICAID, SELFPAY ==
[2023-10-29 10:50] LABS: Blood Urea Nitrogen 7 mg/dl (9-20); Estimated Glomerular Filt Rate 114 ml/min (>60); GFR (African American) 138 ML/MIN (>60)
== END 2023-10-29 23:59 | disposition home or self-care (01) ==
LOC: RAD 09:47
PROVIDERS: PCP Physician Assistant; Visit Provider Nurse Practitioner Family
DX: I73.9 Peripheral vascular disease, unspecified (principal)
CPT/HCPCS: 36415; 75635; 82565; 84520; Q9967